=== PATIENT | male | born 1950 | race Hispanic/Latino ===

== ENCOUNTER → 2020-02-25 | Outpatient (CLI) | payer OTHER | END | disposition home or self-care (01) | LOC: RAH 14:11 | PROVIDERS: ATTEND Urology | DX: N44.2 Benign cyst of testis (principal); N50.3 Cyst of epididymis; N43.40 Spermatocele of epididymis, unspecified | CPT/HCPCS: 76870 ==

== ENCOUNTER 2021-04-27 06:37 | Day surgery (SDC) | payer OTHER ==
[2021-04-24 12:44] LABS: BASOPHILS % (AUTO) 0.5 % (0.0-5.0); EOSINOPHILS % (AUTO) 1.8 % (0.0-8.0); HEMATOCRIT 43.4 % (42-54); MEAN CORPUSCULAR HEMOGLOBIN 28.8 pg (27.0-33.0); MEAN CORPUSCULAR HGB CONC 33.2 g/dL (32.0-36.0); MEAN CORPUSCULAR VOLUME 86.8 fL (79-99); MONOCYTES % (AUTO) 7.3 % (3.0-13.0); NEUTROPHILS % (AUTO) 48.1 % (40.0-77.0); PLATELET COUNT (AUTO) 205 K/uL (130-400); RED CELL DISTRIBUTION WIDTH 13.2 % (11.0-15.5); WHITE BLOOD COUNT (AUTO) 6.1 K/uL (4.8-10.8)
[2021-04-24 12:54] LABS: CREATININE 1.2 mg/dL (0.5-1.5); POTASSIUM 4.5 mmol/L (3.5-5.1)
[2021-04-24 13:42] VITALS: BP 156/87
[2021-04-27] VITALS (14 sets, daily range): BP systolic 110–169; BP diastolic 62–93
[~2021-04-27] VITALS: Ht 167.6 cm; Wt 83.2 kg
[~2021-04-27 06:37] MED LIST: CEFTRIAXONE 1G VIAL IVP SCH; FINA5TAB41 PO; LOSA25TA41 PO; SIMV-43 PO; TAMS-1 PO
[2021-04-27] MEDS ORDERED: LACTATED RINGERS 1000ML 1,000 ML IV ONE (07:47)
[2021-04-27] MEDS ORDERED: DEXAMETHASONE SOD PHOSPHATE 10MG/ML 1ML VIAL ONE (08:15)
[2021-04-27] MEDS ORDERED: LIDOCAINE PF 100MG/5ML (2%) SYRINGE 5ML ONE (08:15)
[2021-04-27] MEDS ORDERED: SUCCINYLCHOLINE 200MG/10ML SYR ONE (08:15)
[2021-04-27] MEDS ORDERED: FENTANYL CITRATE PF 50 MCG/1 ML 2ML VIAL ONE (08:16)
[2021-04-27] MEDS ORDERED: NEOSTIGMINE 5MG/5ML SYR IV ONE (08:16)
[2021-04-27] MEDS ORDERED: ONDANSETRON 4MG INJ ONE (08:16)
[2021-04-27] MEDS ORDERED: ROCURONIUM 10MG/1ML SYR 10 MG/ML ML ONE (08:16)
[2021-04-27] MEDS ORDERED: PROPOFOL 10 MG/ML 20ML VIAL IV ONE (08:16)
[2021-04-27] MEDS ORDERED: MIDAZOLAM HCL 1 MG/ML 2ML VIAL ONE (08:16)
[2021-04-27] MEDS ORDERED: GLYCOPYRROLATE 1 MG/5 ML SYRINGE ONE (08:16)
[2021-04-27] MEDS ORDERED: MEPERIDINE-PF 25 MG/ML SYG ONE (08:52)
[2021-04-27] MEDS ORDERED: PHENAZOPYRIDINE HCL 200 MG TABLET ONE (10:18)
== END 2021-04-27 11:07 | disposition home or self-care (01) ==
LOC: DAH 06:37
PROVIDERS: ATTEND Urology
DX: N35.919 Unspecified urethral stricture, male, unspecified site (principal); R39.14 Feeling of incomplete bladder emptying; N36.9 Urethral disorder, unspecified; I10 Essential (primary) hypertension; I44.0 Atrioventricular block, first degree; Z79.899 Other long term (current) drug therapy; Z20.822 Contact with and (suspected) exposure to COVID-19
CPT/HCPCS: 36415; 52276; 80048; 85025; 87635; 93005; A4215; A4221; A4222; A4223; A4354; A4358; A4600; A4663; A5113; A6260; C1758; C1769; C9803; J0330; J0696; J1100; J2001; J2175; J2250; J2405; J2704; J2710; J3010; J3490; J7120